=== PATIENT | female | born 1955 | race Caucasian/White ===

== ENCOUNTER 2016-08-19 13:14 | Outpatient (CLI) | payer OTHER | END 2016-08-19 13:15 | disposition home or self-care (01) | DX: M85.9 Disorder of bone density and structure, unspecified (principal); M85.80 Other specified disorders of bone density and structure, unspecified site ==

== ENCOUNTER 2016-09-11 08:56 | Outpatient (CLI) | payer OTHER | END 2016-09-11 08:57 | disposition home or self-care (01) | DX: R73.9 Hyperglycemia, unspecified (principal); R74.0 Nonspecific elevation of levels of transaminase and lactic acid dehydrogenase [LDH]; Z13.220 Encounter for screening for lipoid disorders; Z13.9 Encounter for screening, unspecified ==

== ENCOUNTER 2016-09-23 13:22 | Outpatient (CLI) | payer OTHER | END 2016-09-23 13:23 | disposition home or self-care (01) | DX: R74.0 Nonspecific elevation of levels of transaminase and lactic acid dehydrogenase [LDH] (principal) ==

== ENCOUNTER 2016-09-25 13:29 | Outpatient (CLI) | payer OTHER | END 2016-09-25 13:30 | disposition home or self-care (01) | DX: Z12.31 Encounter for screening mammogram for malignant neoplasm of breast (principal) ==

== ENCOUNTER 2016-10-01 17:08 | Outpatient (CLI) | payer OTHER | END 2016-10-01 17:09 | disposition home or self-care (01) | DX: R94.5 Abnormal results of liver function studies (principal) ==

== ENCOUNTER 2017-04-21 10:06 | Outpatient (CLI) | payer OTHER ==
[2017-04-21 11:07] LABS: CHOL/HDL RATIO 4.1 (<4.4); CHOLESTEROL 225 mg/dL; GLUCOSE 92 mg/dL (70-100); HDL CHOLESTEROL 55 mg/dL; HEMOGLOBIN A1C 0.49 g/dL; LDL/HDL RATIO 2.9 (<4.4); TRIGLYCERIDES 55 mg/dL; VLDL CHOLESTEROL 11 mg/dL
== END 2017-04-21 10:07 | disposition home or self-care (01) ==
LOC: LAB 10:06
PROVIDERS: ATTEND Physician Assistant
DX: E78.5 Hyperlipidemia, unspecified (principal); R73.01 Impaired fasting glucose
CPT/HCPCS: 36415; 80061; 82947; 83036; 84450; 84460

== ENCOUNTER 2017-09-18 11:51 | Outpatient (CLI) | payer OTHER ==
[2017-09-21 11:12] LABS: THYROGLOBULIN <0.1 ng/mL
== END 2017-09-18 11:52 | disposition home or self-care (01) ==
LOC: LAB 11:51
PROVIDERS: ATTEND Internal Medicine Endocrinology, Diabetes & Metabolism
DX: C73 Malignant neoplasm of thyroid gland (principal)
CPT/HCPCS: 36415; 84432; 84443; 86800

== ENCOUNTER 2017-10-23 07:45 | Outpatient (CLI) | payer OTHER ==
[2017-10-23 08:23] LABS: ALBUMIN 4.3 g/dL (3.2-5.5); ALBUMIN/GLOBULIN RATIO 1.2 (1.0-2.2); ALKALINE PHOSPHATASE 61 IU/L (42-121); ALT ALANINE AMINOTRANSFERASE 22 IU/L (10-60); AST ASPARTATE AMINOTRANSFERASE 53 IU/L (10-42); BILIRUBIN,TOTAL 0.8 mg/dL (0.2-1.0); BUN - BLOOD UREA NITROGEN 20 mg/dL (6-20); CALCIUM 9.4 mg/dL (8.5-10.3); CARBON DIOXIDE - CO2 30 mmol/L (21-32); CHLORIDE 101 mmol/L (101-111); CHOL/HDL RATIO 4.1 (<4.4); CHOLESTEROL 194 mg/dL; CREATININE 0.8 mg/dL (0.4-1.0); GFR - MDRD 73 (>89); GLUCOSE 93 mg/dL (70-100); HDL CHOLESTEROL 47 mg/dL; LDL CHOLESTEROL,CALCULATED 135 mg/dL; LDL/HDL RATIO 2.9 (<4.4); SODIUM 138 mmol/L (135-145); TOTAL PROTEIN 7.8 g/dL (6.7-8.2); VLDL CHOLESTEROL 12 mg/dL
== END 2017-10-23 07:46 | disposition home or self-care (01) ==
LOC: LAB 07:45
PROVIDERS: ATTEND Physician Assistant
DX: E78.5 Hyperlipidemia, unspecified (principal); E03.9 Hypothyroidism, unspecified
CPT/HCPCS: 36415; 80053; 80061; 83721

== ENCOUNTER 2017-11-10 13:17 | Outpatient (CLI) | payer OTHER ==
--- NOTE | 2017-11-11 13:47 | Mammography Report ---
Procedure Date: 11/10/2017 Accession Number: [id number] / [id number] Procedure: BONY - Screening Mammo Dig Bilat CPT Code: FULL RESULT: EXAM: Screening Mammo Dig Bilat DATE: 11/10/2017 1:33 PM CLINICAL HISTORY: 62-year-old with history of late childbearing for screening COMPARISON: 09/25/2016, 09/05/2015, 09/08/2014 TECHNIQUE: Bilateral CC and MLO views were obtained. FINDINGS: The breasts demonstrate scattered fibroglandular densities bilaterally. Coarse and punctate, typically benign calcifications are present. No suspicious masses, clustered microcalcifications, or regions of architectural distortion are identified. IMPRESSION: Benign findings RECOMMENDATION: Routine annual screening unless otherwise clinically indicated. BIRADS CATEGORY 2: Benign findings STANDARD QUALIFYING STATEMENTS: 1. This examination was reviewed with the aid of Computer-Aided Detection (CAD). 2. A negative or benign imaging report should not delay biopsy if clinically suspicious findings are present. Consider surgical consultation if warrented. More than 5% of cancers are not identified by imaging. 3. Dense breasts may obscure an underlying neoplasm.
== END 2017-11-10 13:18 | disposition home or self-care (01) ==
LOC: DI 13:17
PROVIDERS: ATTEND Physician Assistant
DX: Z12.31 Encounter for screening mammogram for malignant neoplasm of breast (principal)
CPT/HCPCS: 77067

== ENCOUNTER 2018-04-15 08:15 | Outpatient (CLI) | payer OTHER ==
[2018-04-15 08:47] LABS: ALBUMIN 4.3 g/dL (3.2-5.5); ALBUMIN/GLOBULIN RATIO 1.2 (1.0-2.2); ALKALINE PHOSPHATASE 60 IU/L (42-121); ALT ALANINE AMINOTRANSFERASE 21 IU/L (10-60); AST ASPARTATE AMINOTRANSFERASE 50 IU/L (10-42); BILIRUBIN,TOTAL 0.9 mg/dL (0.2-1.0); BUN - BLOOD UREA NITROGEN 16 mg/dL (6-20); CALCIUM 9.1 mg/dL (8.5-10.3); CARBON DIOXIDE - CO2 29 mmol/L (21-32); CHLORIDE 100 mmol/L (101-111); CHOL/HDL RATIO 3.9 (<4.4); CHOLESTEROL 205 mg/dL; CREATININE 0.8 mg/dL (0.4-1.0); GFR - MDRD 73 (>89); GLUCOSE 100 mg/dL (70-100); HDL CHOLESTEROL 52 mg/dL; LDL CHOLESTEROL,CALCULATED 142 mg/dL; LDL/HDL RATIO 2.7 (<4.4); SODIUM 136 mmol/L (135-145); TOTAL PROTEIN 7.8 g/dL (6.7-8.2); VLDL CHOLESTEROL 11 mg/dL
== END 2018-04-15 08:16 | disposition home or self-care (01) ==
LOC: LAB 08:15
PROVIDERS: ATTEND Physician Assistant
DX: R73.01 Impaired fasting glucose (principal); E78.5 Hyperlipidemia, unspecified
CPT/HCPCS: 36415; 80053; 80061; 83721

== ENCOUNTER 2018-05-21 19:42 | Outpatient (CLI) | payer OTHER ==
--- NOTE | 2018-05-24 05:41 | Ultrasound Report ---
Reason: LOCALIZED SWELLING, MASS LUMP TRUNK, PELVIC SWEL Procedure Date: 05/21/2018 Accession Number: [id number] / [id number] Procedure: US - Ext Limited Non Vascular CPT Code: FULL RESULT: EXAM: LEFT BACK ULTRASOUND - LIMITED EXAM DATE: 05/21/2018 08:10 PM. CLINICAL HISTORY: Localized swelling, mass lump trunk, pelvic swelling. COMPARISON: ABDOMEN LIMITED 05/21/2018 7:52 PM. TECHNIQUE: Real-time scanning was performed with static images obtained. IMPRESSION: Palpable region in the left back corresponds to an ovoid relatively hypoechoic solid nodule measuring 27 x 20 x 7 mm. This is most likely a lipoma. If the mass enlarges or becomes symptomatic, consider MRI for confirmation. [facility]
--- NOTE | 2018-05-25 01:27 | Ultrasound Report ---
Reason: LOCALIZED SWELLING, MASS LUMP TRUNK, PELVIC SWEL Procedure Date: 05/21/2018 Accession Number: [id number] / [id number] Procedure: US - Abdomen Limited CPT Code: FULL RESULT: EXAM: ABDOMEN ULTRASOUND LIMITED EXAM DATE: 05/21/2018 08:07 PM. CLINICAL HISTORY: Localized swelling, mass, lump trunk, pelvic swelling. COMPARISON: ABDOMEN LIMITED 10/01/2016 5:09 PM. TECHNIQUE: Real-time scanning was performed with static images obtained. IMPRESSION: Palpable region in the anterior right intercostal region corresponds to an ovoid relatively hypoechoic solid nodule measuring 33 x 19 x 9 mm. Nonspecific appearance and could reflect a lipoma, leiomyoma, or other lesions such as neurogenic tumor in this region. MRI could be considered for further evaluation if indicated. RADIA
== END 2018-05-21 19:43 | disposition home or self-care (01) ==
LOC: DI 19:42
PROVIDERS: ATTEND Nurse Practitioner Family
DX: R22.2 Localized swelling, mass and lump, trunk (principal)
CPT/HCPCS: 76705; 76882

== ENCOUNTER 2018-06-24 08:20 | Outpatient (CLI) | payer OTHER ==
[2018-06-24] MEDS ORDERED: GADOBUTROL 10 MMOL/10 ML VIAL ONE (08:28)
[2018-06-24] MEDS ORDERED: GADOBUTROL 10 MMOL/10 ML VIAL IVP ONE ×2 (09:37→10:12)
--- NOTE | 2018-06-24 12:45 | MRI Report ---
Reason: INTA ABDOOMINAL AND PELVIC SWELLING, MASS AND LUMP Procedure Date: 06/24/2018 Accession Number: [id number] / [id number] Procedure: MRI - Abdomen W/WO CPT Code: FULL RESULT: EXAM: MR ABDOMEN WITH AND WITHOUT CONTRAST EXAM DATE: 06/24/2018 09:34 AM. CLINICAL HISTORY: Intraabdominal and pelvic swelling, mass and lump. COMPARISON: ABDOMEN LIMITED 05/21/2018 7:52 PM. TECHNIQUE: Multiplanar breath-hold T1, T2, and DWI sequences obtained through the pancreas and abdomen on an MR scanner. Dedicated 2D and 3D MRCP sequences obtained through the biliary and pancreatic ducts. Images obtained before and after administration of 8 mL Gadavist intravenous contrast. Multiphase postcontrast sequences obtained through the pancreas. FINDINGS: Lung Bases: The lung bases are clear. Liver: The liver has normal size, morphology and signal. A small cyst is seen at the hepatic dome, 1.1 cm. No evidence of suspicious mass. The intrahepatic ducts appear normal. CBD: The CBD appears normal and measures 6 mm in diameter. Gallbladder: The gallbladder is partially distended and appears normal with no wall thickening or stone. Pancreas: The pancreas appears normal with no mass. Spleen: The spleen appears normal. Kidneys and Adrenals: The kidneys appear normal with no suspicious mass or hydronephrosis. There are small simple cysts in the kidneys. The adrenals appear normal. Bowel: The small bowel and colon appear normal with no inflammation or obstruction. Retroperitoneum: The retroperitoneal structures appear normal with no mass or lymphadenopathy. The right extrathoracic anterolateral chest wall contains a 2.3 x 5.1 x 1.4 cm lipoma within the external oblique musculature which does not show evidence of local invasion or substantial vascularity. IMPRESSION: Right 5.1 cm long 1.4 cm thick and 2.3 cm wide chest wall lipoma, a typically benign lesion. Imaging differentiation from the rare entity of liposarcoma is not possible though there are no features of aggression/local invasion. RADIA
== END 2018-06-24 08:21 | disposition home or self-care (01) ==
LOC: DI 08:20
PROVIDERS: ATTEND Nurse Practitioner Family
DX: D17.1 Benign lipomatous neoplasm of skin and subcutaneous tissue of trunk (principal)
CPT/HCPCS: 74183; A9585

== ENCOUNTER 2018-09-01 13:46 | Outpatient (CLI) | payer OTHER ==
[2018-09-03 10:21] LABS: THYROGLOBULIN <0.1 ng/mL
== END 2018-09-01 13:47 | disposition home or self-care (01) ==
LOC: LAB 13:46
PROVIDERS: ATTEND Internal Medicine Endocrinology, Diabetes & Metabolism
DX: C73 Malignant neoplasm of thyroid gland (principal); E89.0 Postprocedural hypothyroidism
CPT/HCPCS: 36415; 84432; 84443; 86800

== ENCOUNTER 2018-11-12 13:44 | Outpatient (CLI) | payer OTHER ==
--- NOTE | 2018-11-12 15:48 | Mammography Report ---
Reason: ENCOUNTER FOR SCREENING MAMMOGRAM FOR MALIGNANT NE Procedure Date: 11/12/2018 Accession Number: [id number] / [id number] Procedure: BONY - Screening Mammo w/Jose CPT Code: FULL RESULT: EXAM: Screening Mammo w/Jose DATE: 11/12/2018 2:32 PM CLINICAL HISTORY: Screening TECHNIQUE: (B) - Bilateral CC and MLO views were obtained. COMPARISON: 11/10/2017, 09/25/2016, 09/05/2015 PARENCHYMAL PATTERN: (A) - The breasts demonstrate scattered fibroglandular densities bilaterally. FINDINGS: There are no suspicious masses, calcifications, or areas of distortion. IMPRESSION: Negative examination. BI-RADS category 1. RECOMMENDATION: (ANNUAL) - Recommend routine annual screening mammography. BI-RADS CATEGORY: (2) - Benign Findings. STANDARD QUALIFYING STATEMENTS: 1. This examination was not reviewed with the aid of Computer-Aided Detection (CAD). 2. A negative or benign imaging report should not preclude biopsy if clinically suspicious findings are present. 3. Dense breasts may obscure an underlying neoplasm. 4. This examination was reviewed with the aid of 3D breast imaging (tomosynthesis).
== END 2018-11-12 13:45 | disposition home or self-care (01) ==
LOC: DI 13:44
PROVIDERS: ATTEND Physician Assistant
DX: Z12.31 Encounter for screening mammogram for malignant neoplasm of breast (principal)
CPT/HCPCS: 77063; 77067

== ENCOUNTER 2018-12-14 08:23 | Outpatient (CLI) | payer OTHER ==
--- NOTE | 2018-12-15 10:23 | DEXA Report ---
Reason: ASYMPTOMATIC MENOPAUSAL STATE Procedure Date: 12/14/2018 Accession Number: [id number] / [id number] Procedure: DEX - Dexa Spine and/or Hip CPT Code: FULL RESULT: EXAM: Dexa Spine and/or Hip DATE: 12/14/2018 8:39 AM CLINICAL HISTORY: ASYMPTOMATIC MENOPAUSAL STATE TECHNIQUE: Dual energy x-ray absorptiometry (DXA) was performed on a [employer] System. Regions measured are the AP Spine, femoral neck, and if needed forearm. COMPARISON: 08/19/2016. In accordance with the International Society for Clinical Densitometry (ISCD) guidelines, data from previous exams may be reanalyzed using current recommendations and techniques. This is done to allow a more accurate basis for comparison with the current study. FINDINGS: The data for the lumbar spine is as follows: BMD (g/cm/cm) T-SCORE Z-SCORE REGION L1 1.060 -0.6 0.9 L2 1.048 -1.3 0.3 L3 1.134 -0.5 1.0 L4 1.168 -0.3 1.3 TOTAL 1.108 -0.6 0.9 NOTE: All evaluable vertebrae are used for classification The data for the hip is as follows: BMD (g/cm/cm) T-SCORE Z-SCORE REGION Neck 0.870 -1.2 0.2 TOTAL 1.037 0.2 1.4 NOTE: The femoral neck or total proximal femur, whichever is lowest, is used for classification. DXA RESULTS SUMMARY: Spine SCAN DATE [age]GE BMD CHANGE VS CHANGE VS PREVIOUS PREVIOUS % [birth year][age]14[birth year]2018 [age] 1[age]108 0.044* 4.1* 08/19/2016 60.9 1[age]064 * Denotes significant change at the 95% confidence level. Denotes dissimilar scan types or analysis methods. DXA RESULTS SUMMARY: Hip SCAN DATE AGE BMD CHANGE VS CHANGE VS PREVIOUS PREVIOUS % [birth year]2018 63.2 1.037 0.014 1.4 08/19/2016 60.9 1.023 * Denotes significant change at the 95% confidence level. Denotes dissimilar scan types or analysis methods. IMPRESSION: THE WHO CLASSIFICATION BASED ON THE INTERNATIONAL REFERENCE STANDARD IS OSTEOPENIA. THE FRACTURE RISK IS INCREASED. RECOMMENDATION: Patients with diagnosis of osteoporosis or osteopenia should have regular bone mineral density assessment. For those eligible for Medicare, routine testing is allowed once every 2 years. Testing frequency can be increased for patients who have rapidly progressing disease or for those who are receiving medical therapy to restore bone mass. COMMENT: World Health Organization (WHO) definitions for osteoporosis and osteopenia: NORMAL BMD: T-score at -1.0 or higher, fracture risk is low OSTEOPENIA BMD: T-score between -1.0 and -2.5, fracture risk is increased. OSTEOPOROSIS BMD: T-score at -2.5 or lower, fracture risk is high. National Osteoporosis Foundation recommends: 1. Obtain adequate dietary calcium (at least 1200 mg per day) and vitamin D (400-800 international units per day). 2. Participate, as appropriate, in regular weightbearing and muscle-strengthening exercise. 3. Avoid tobacco use and reduce alcohol and caffeine intake. 4. For more detailed information see the website at www.NOF.org.
== END 2018-12-14 08:24 | disposition home or self-care (01) ==
LOC: DI 08:23
PROVIDERS: ATTEND Physician Assistant
DX: M85.89 Other specified disorders of bone density and structure, multiple sites (principal); Z78.0 Asymptomatic menopausal state
CPT/HCPCS: 77080